=== PATIENT | male | born 1990 | race Caucasian/White ===

== ENCOUNTER 2017-02-26 09:43 | Emergency (ER) | payer MEDICAID ==
[~2017-02-26] VITALS: Ht 175.3 cm; Wt 95.0 kg
[2017-02-26] MEDS ORDERED: DIVAL250 PO (09:50)
[2017-02-26] MEDS ORDERED: SODIUM CHLORIDE 0.9% 1,000 ML IV ONE (09:56)
[2017-02-26 10:02] VITALS: BP 129/78
[2017-02-26 10:19] LABS: BASOPHILS % 0.8 % (0.0-2.0); HEMATOCRIT. 47.9 % (42.0-52.0); HEMOGLOBIN. 16.9 g/dL (14.0-18.0); LYMPHOCYTES % 32.5 % (20.0-50.0); MEAN CORPUSCULAR HEMOGLOBIN 32.3 pg (28.0-32.0); MEAN CORPUSCULAR HGB CONC 35.2 g/dL (31.0-37.0); MEAN CORPUSCULAR VOLUME 91.5 fL (80.0-94.0); MEAN PLATELET VOLUME 8.3 fl (7.4-10.4); MONOCYTES % 7.2 % (2.0-8.0); NEUTROPHILS % 57.5 % (40.0-76.0); PLATELET 193 x1000/uL (130-400); RED BLOOD CELL COUNT 5.23 mill/uL (4.7-6.1); RED CELL DISTRIBUTION WIDTH 12.5 % (11.6-14.6); WHITE BLOOD COUNT 6.7 x1000/uL (4.5-11.0)
[2017-02-26 10:32] LABS: ANION GAP 15; CARBON DIOXIDE 26 mEq/L (21-32); CHLORIDE 105 mEq/L (98-107); INDEX HEMOLYSI 1 (1-3); INDEX ICTERIC 1 (1-4); INDEX LIPEMIC 1 (1-3); UREA NITROGEN BLOOD 8 mg/dL (7-21); VALPROIC ACID 12.1 ug/mL (50-100); eGFR > 60 mL/min (>60)
[2017-02-26] MEDS ORDERED: DIVALPROEX SODIUM 500MG ER TABLET PO STA (11:45)
== END 2017-02-26 14:15 | disposition home or self-care (01) ==
LOC: ER 09:55
DX: R56.9 Unspecified convulsions (principal); E66.9 Obesity, unspecified; I10 Essential (primary) hypertension; Z91.19 Patient's noncompliance with other medical treatment and regimen
CPT/HCPCS: 36415; 80048; 80165; 85025; 99284; J7030; Z7610